=== PATIENT | male | born 1955 | race Caucasian/White ===

== ENCOUNTER 2021-09-05 02:04 | Inpatient (IN) | payer BC ==
[~2021-09-05] VITALS: Ht 177.8 cm; Wt 81.3 kg
[2021-09-05 02:25] LABS: BASOPHILS ABSOLUTE AUTO 0.06 K/mm3 (0.00-0.23); BASOPHILS PERCENT AUTO 1 % (0-2); EOSINOPHILS ABSOLUTE AUTO 0.07 K/mm3 (0.00-0.68); EOSINOPHILS PERCENT AUTO 1 % (0-6); Hematocrit 39.4 % (37.0-53.0); Hemoglobin 12.7 g/dL (13.5-17.5); IMMATURE GRAN ABSOLUTE AUTO 0.13 K/mm3 (0.00-0.10); IMMATURE GRAN PERCENT AUTO 2 % (0-1); LYMPHOCYTES ABSOLUTE AUTO 1.52 K/mm3 (0.84-5.20); LYMPHOCYTES PERCENT AUTO 21 % (21-46); MONOCYTES ABSOLUTE AUTO 0.44 K/mm3 (0.16-1.47); MONOCYTES PERCENT AUTO 6 % (4-13); Mean Corpuscular HGB 29.5 pg (26.0-34.0); Mean Corpuscular HGB Conc 32.2 g/dL (31.5-36.5); Mean Corpuscular Volume 92 fL (80-100); Mean Platelet Volume 9.6 fL (9.1-12.4); NEUTROPHILS ABSOLUTE AUTO 4.88 K/mm3 (1.96-9.15); NEUTROPHILS PERCENT AUTO 69 % (41-73); Platelet Count 166 K/mm3 (150-400); RDW Coefficient Variation 12.8 % (11.7-14.2); RDW Standard Deviation 43.3 fL (35.1-46.3)
[2021-09-05 02:42] LABS: Alanine Aminotransfer (ALT/SGP 34 U/L (12-78); Albumin, Blood 3.8 g/dL (3.4-5.0); Albumin/Globulin Ratio 1.3 (0.8-1.8); Alk Phos 108 U/L (50-136); Anion Gap 14 mmol/L (6-16); Aspartate Aminotrans (AST/SGOT 20 U/L (12-37); Bilirubin, Total 0.1 mg/dL (0.1-1.0); Blood Urea Nitrogen 9 mg/dL (8-24); Bun/Creatinine Ratio 11.3 (12.0-20.0); CO2, Blood 19 mmol/L (21-32); Calcium, Blood 8.5 mg/dL (8.5-10.1); Chloride, Blood 109 mmol/L (98-108); Glomerular Filtration Rate >60 (60-); Glucose, Blood 153 mg/dL (70-99); Magnesium, Blood 2.2 mg/dL (1.6-2.4); Potassium, Blood 4.2 mmol/L (3.5-5.5); Sodium, Blood 142 mmol/L (136-145); Total Protein, Blood 6.8 g/dL (6.4-8.2)
[2021-09-05 11:44] LABS: Source, Urine Clean Catch
[2021-09-05 12:29] LABS: Appearance, Urine Clear (Clear); Bilirubin, Urine Neg (Neg); Blood, Urine 2+ (Neg); Color, Urine Yellow (P-Yellow); Glucose Qualitative, Urine Neg (Neg); Ketones, Urine Neg (Neg); Leukocyte Esterase, Urine Neg (Neg); Nitrite, Urine Neg (Neg); Protein, Urine Neg (Neg); Specific Gravity, Urine 1.005 (1.003-1.022); Urobilinogen, Urine NORM (Normal)
[2021-09-05 12:46] LABS: Bacteria Not Seen /hpf; Red Blood Cells, Urine 0-2 /hpf (0-2); Squamous Epithelial Cells Not Seen /hpf (Few); White Blood Cells, Urine 0-2 /hpf (0-5)
[2021-09-05 13:00] LABS: U Barbituate Screen DETECTED; U Cannabinoids Screen DETECTED
[2021-09-05 13:01] LABS: U Amphetamine Screen Not Detected; U Benzodiazapine Screen Not Detected; U Buprenorphine Screen Not Detected; U Cocaine Screen Not Detected; U Methadone Screen Not Detected; U Methamphetamine Screen Not Detected; U Opiates Screen Not Detected; U Oxycodone Screen Not Detected; U Phencyclidine Screen Not Detected; U Propoxyphene Screen Not Detected
[2021-09-05] MEDS ORDERED: ASPI81CH PO (13:43)
[2021-09-05] MEDS ORDERED: Simvastatin20 MG PO (13:43)
[2021-09-05] MEDS ORDERED: KEPPRA1000 M1 PO (13:44)
[2021-09-05] MEDS ORDERED: METO25ER PO (13:45)
[2021-09-05] MEDS ORDERED: CLOP75 PO (13:45)
[2021-09-05] MEDS ORDERED: PANT40 PO (13:45)
--- NOTE | 2021-09-05 17:46 | NUR ---
END OF SHIFT SUMMARY: PATIENT IS ALERT AND ORIENTED X 3. SEVERE DROWSINESS. WILL RESPOND TO PRESSURE, AND VERBAL STIMULI. SLEPT MOST OF THE DAY. MRI MATCHED CT RESULTS. POWERGLIDE IN THE [place], DOES NOT ENDORSE CHEST PAIN, HAS BEEN IN NO VISUAL RESPIRATORY DISTRESS, NO SEIZURE OBSERVED THROUGH THE DAY. 2L VIA NC, SPO2 >96%. CONDOM CATH IN PLACE, BRIEF IN PLACE BM TODAY, STICKY AND MEDIUM AMOUNT. NPO BUT A DIET HAS BEEN ORDERED AND WILL BE UNDER THE NURSES DISCRETION NEURO IMPROVS TO GIVE THE PATIENT A TRAY OR NOT. PATIENT HAS FLUID RUNNING X 1 BAG STILL. WILL CONTINUE TO MONITOR PATIENT AT THIS TIME.
[2021-09-06 04:00] LABS: BASOPHILS ABSOLUTE AUTO 0.03 K/mm3 (0.00-0.23); BASOPHILS PERCENT AUTO 0 % (0-2); EOSINOPHILS ABSOLUTE AUTO 0.07 K/mm3 (0.00-0.68); EOSINOPHILS PERCENT AUTO 1 % (0-6); Hematocrit 34.7 % (37.0-53.0); Hemoglobin 11.6 g/dL (13.5-17.5); IMMATURE GRAN ABSOLUTE AUTO 0.04 K/mm3 (0.00-0.10); IMMATURE GRAN PERCENT AUTO 0 % (0-1); LYMPHOCYTES ABSOLUTE AUTO 1.69 K/mm3 (0.84-5.20); LYMPHOCYTES PERCENT AUTO 19 % (21-46); MONOCYTES ABSOLUTE AUTO 0.89 K/mm3 (0.16-1.47); MONOCYTES PERCENT AUTO 10 % (4-13); Mean Corpuscular HGB Conc 33.4 g/dL (31.5-36.5); Mean Corpuscular Volume 90 fL (80-100); Mean Platelet Volume 9.8 fL (9.1-12.4); NEUTROPHILS PERCENT AUTO 70 % (41-73); Platelet Count 154 K/mm3 (150-400); RDW Coefficient Variation 12.8 % (11.7-14.2); RDW Standard Deviation 41.9 fL (35.1-46.3); Red Blood Cell Count 3.87 M/mm3 (4.30-5.90); White Blood Cell Count 9.02 K/mm3 (4.00-11.30)
[2021-09-06 04:17] LABS: Alanine Aminotransfer (ALT/SGP 24 U/L (12-78); Albumin, Blood 3.2 g/dL (3.4-5.0); Albumin/Globulin Ratio 1.2 (0.8-1.8); Alk Phos 100 U/L (50-136); Anion Gap 4 mmol/L (6-16); Aspartate Aminotrans (AST/SGOT 15 U/L (12-37); Bilirubin, Total 0.4 mg/dL (0.1-1.0); Blood Urea Nitrogen 12 mg/dL (8-24); Bun/Creatinine Ratio 16.6 (12.0-20.0); CO2, Blood 29 mmol/L (21-32); Calcium, Blood 8.2 mg/dL (8.5-10.1); Chloride, Blood 109 mmol/L (98-108); Creatinine, Blood 0.73 mg/dL (0.60-1.20); Globulin, Blood 2.6 g/dL (2.2-4.0); Glomerular Filtration Rate >60 (60-); Glucose, Blood 114 mg/dL (70-99); Sodium, Blood 142 mmol/L (136-145); Total Protein, Blood 5.8 g/dL (6.4-8.2)
--- NOTE | 2021-09-06 13:05 | NUR ---
DISCHARGE NOTE PT WAS TRANSPORTED TO PERSONAL VEHICLE VIA WHEELCHAIR. PT'S SPOUSE RAISED SOME CONCERNS OVER SAFETY AFTER DISCHARGE THAT WERE ADDRESSED PRIOR TO DISCHARGE. PT AND SPOUSE STATED THAT THEIR CONCERNS WERE ADDRESSED SATISFACTORILY. ALL BELONGINGS AND DISCHARGE INSTRUCTIONS WERE IN PT'S POSSESSION AT TIME OF TRANSPORT.
== END 2021-09-06 12:53 | disposition home or self-care (01) | DRG 101 ==
LOC: ER 02:04 → ERHOLD 05:33 → PCU 05:33
PROVIDERS: Internal Medicine; Student in an Organized Health Care Education/Training Program; ADMIT Internal Medicine
DX: G40.909 Epilepsy, unspecified, not intractable, without status epilepticus (principal); G35 Multiple sclerosis; F12.90 Cannabis use, unspecified, uncomplicated; R19.7 Diarrhea, unspecified; Z79.899 Other long term (current) drug therapy; Z86.73 Personal history of transient ischemic attack (TIA), and cerebral infarction without residual deficits
CPT/HCPCS: 70450; 70551; 71045; 80053; 81001; 83735; 85025; 93005; 93010; 96365; 96375; 97116; 97162; 97530; 99285-25; A9270; C1751; J0696; J1165; J1650; J1953; J7030; J7040